=== PATIENT | male | born 1990 ===

== ENCOUNTER 2024-11-27 13:56 | Emergency (ER) | payer OTHER, SELFPAY ==
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
[2024-11-27 14:06] VITALS: BP 136/85; PULSE 55; RESP 20; TEMP 36.4; O2SAT 100; BMI 27.2
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
[2024-11-27 17:54] VITALS: BP 148/90; PULSE 57; RESP 20; TEMP 37.2; O2SAT 100
[2024-11-27 17:56] VITALS: BP 148/90; PULSE 57; RESP 20; TEMP 37.2; O2SAT 100
== END 2024-11-27 17:57 | disposition home or self-care (01) ==
PROVIDERS: Emergency Provider Student in an Organized Health Care Education/Training Program
DX: S00.83XA Contusion of other part of head, initial encounter (principal); S16.1XXA Strain of muscle, fascia and tendon at neck level, initial encounter; R51.9 Headache, unspecified; M54.2 Cervicalgia; Y04.2XXA Assault by strike against or bumped into by another person, initial encounter; Y93.89 Activity, other specified; Y92.89 Other specified places as the place of occurrence of the external cause; Y99.0 Civilian activity done for income or pay
CPT/HCPCS: 70450; 70486; 72125; 99284